=== PATIENT | female | born 1985 | race Caucasian/White ===

== ENCOUNTER → 2016-03-23 | Outpatient (CLI) | payer OTHER ==
[~2016-03-23] MED LIST: DOCU-94 PO; PRENTAB26 PO; SERT25TA PO
== END | disposition home or self-care (01) ==
LOC: C.LABSPEC 11:27
PROVIDERS: ATTEND Obstetrics & Gynecology
DX: O09.293 Supervision of pregnancy with other poor reproductive or obstetric history, third trimester (principal); Z3A.00 Weeks of gestation of pregnancy not specified

== ENCOUNTER 2016-04-16 00:02 | Inpatient (IN) | payer OTHER ==
[~2016-04-16] VITALS: Ht 162.6 cm; Wt 83.2 kg
[~2016-04-16 00:02] MED LIST changes: -DOCU-94 PO
[2016-04-16] MEDS ORDERED: DOCU-94 PO (00:17)
[2016-04-16 00:20] VITALS: Ht 162.6 cm; Wt 83.2 kg
[2016-04-16] MEDS ORDERED: LACTATED RINGER'S 1000ML 1,000 ML IV SCH (00:32)
[2016-04-16] MEDS ORDERED: LACTATED RINGER'S 1000ML 1,000 ML IV PRN (00:32)
[2016-04-16 00:53] LABS: HEMATOCRIT 35.1 % (37-47); MEAN CELL VOLUME 88.9 fL (80-100); MEAN CORPUSCULAR HEMOGLOBIN 30.1 pg (25-34); MEAN CORPUSCULAR HGB CONC 33.9 g/dl (32-36); MEAN PLATELET VOLUME 10.2 fL (7.4-10.4); PLATELET COUNT 300 K/uL (130-400); RED BLOOD COUNT 3.95 M/uL (4.2-5.4); WHITE BLOOD COUNT 12.17 K/uL (4.8-10.8)
[2016-04-16] MEDS ORDERED: OXYTOCIN 30 UNITS/500ML NSS IV ONE (01:29)
[2016-04-16] MEDS ORDERED: SUPERCREAM 0.870 % 15GM JAR EXT PRN (03:15)
[2016-04-16] MEDS ORDERED: LANOLIN OINT EXT PRN ×2 (03:15)
[2016-04-16] MEDS ORDERED: OXYTOCIN 30 UNITS/500ML NSS IV PRN (03:15)
[2016-04-16] MEDS ORDERED: BENZOCAINE 20% AER SPR 82.5 GM CAN EXT PRN (03:15)
[2016-04-16] MEDS ORDERED: ACETAMINOPHEN/CODEINE 300/30MG TAB PO PRN ×2 (03:15)
[2016-04-16] MEDS ORDERED: HYDROCORTISONE ACETATE 25 MG SUPP PR PRN (03:15)
[2016-04-16] MEDS: IBUPROFEN 600 MG TAB PO PRN ×2 (03:16→10:08)
--- NOTE | 2016-04-16 05:38 | DELIVERY SUMMARY ---
DATE OF OPERATION: 04/16/2016 PREDELIVERY DIAGNOSES: 1. A 30-year-old G4, P1-0-2-1, at 39 weeks, 3 days. 2. Spontaneous labor. POSTDELIVERY DIAGNOSES: Same. PROCEDURE: Spontaneous vaginal delivery with repair of second degree peroneal laceration. SURGEON: Dr. Prado. ESTIMATED BLOOD LOSS: 300 mL. FINDINGS: Viable female , Apgars 8 and 8 with a second degree peroneal laceration. DETAILS OF DELIVERY: The patient progressed to complete without analgesia and she spontaneously vaginally delivered a viable female from the cephalic presentation. The head delivered in the left occiput anterior position followed by the anterior shoulder and the posterior shoulder and the body. No nuchal cord was noted. The baby was placed on mother's abdomen and a spontaneous cry was heard. Delayed cord clamping was performed. The cord was then doubly clamped and cut. Cord blood was obtained. The perineum, vagina and cervix were inspected and a second degree peroneal laceration was noted. 1% lidocaine with epi was used to achieve local anesthetic. The placenta was then delivered spontaneously, intact with a 3-vessel cord. The second degree peroneal laceration was repaired in standard fashion with 3-0 Vicryl in a running stitch. Of note, there was a small vessel bleeding at the inferior perineal apex of the peroneal laceration near the rectum this was incorporated in the laceration repair and excellent hemostasis was achieved at the time of repair. The uterus and vagina were swept off all clots and debris. Excellent hemostasis was observed again. At the conclusion of the delivery, sponge, instrument and needle counts were correct x2. The mother and baby recovered in the room in stable and good condition. I attest to the content of the Intraoperative Record and any orders documented therein. Any exceptio ns are noted below.
[2016-04-16 06:00] VITALS: BP 108/64; PULSE 82; TEMP 36.6; O2SAT 97
[2016-04-16 07:52] VITALS: BP 106/68; PULSE 76; TEMP 36.9
[2016-04-16] MEDS ORDERED: DOCUSATE SODIUM 100 MG CAP PO SCH (08:00)
[2016-04-16] MEDS: DOCUSATE SODIUM 100 MG CAP PO SCH ×2 (08:21→19:43)
[2016-04-16] MEDS: FERROUS SULFATE 325 MG TAB PO SCH (08:21)
[2016-04-16] MEDS: PRENATAL VITAMIN TAB PO SCH (08:21)
[2016-04-16 12:00] VITALS: BP 106/68; PULSE 80; TEMP 36.7
[2016-04-16 16:00] VITALS: BP 107/66; PULSE 60; TEMP 36.8
[2016-04-16 19:35] VITALS: BP 106/71; PULSE 82; TEMP 37
[2016-04-17 00:25] VITALS: BP 102/59; PULSE 64; TEMP 36.8
[2016-04-17 06:17] LABS: HEMATOCRIT 36.1 % (37-47)
--- NOTE | 2016-04-17 06:44 | Progress Note ---
Subjective Apr 17, 2016. Subjective conversation w/ patient, physical exam Ambulation: ambulating normally Voiding: no voiding problems Passing Gas: Yes Diet Tolerance: Regular Diet Lochia: Small Feeding Type: Breast Feeding Objective Vital Signs Date Time Temp Pulse Resp B/P Pulse Ox O2 Delivery O2 Flow Rate FiO2 04/17/16 00:27 Room Air 04/17/16 00:25 36.8 64 18 102/59 Room Air 04/16/16 19:35 37.0 82 16 106/71 Room Air 04/16/16 16:00 36.8 60 20 107/66 Room Air 04/16/16 16:00 Room Air 04/16/16 12:00 36.7 80 18 106/68 Room Air 04/16/16 12:00 Room Air 04/16/16 07:52 36.9 76 20 106/68 Room Air 04/16/16 07:45 Room Air Physical Exam General Appearance: WELL-APPEARING, NO APPARENT DISTRESS Respiratory/Chest: lungs clear, no respiratory distress Cardiovascular: regular rate, rhythm, no murmur Abdomen: non tender, soft Fundus: Firm, Non-Tender, Relation to Umbilicus (at the umbilicus) Extremities: non-tender, no calf tenderness Laboratory Results Last 24 Hours Test 04/17/16 05:45 Hemoglobin 11.9 g/dL Hematocrit 36.1 % Assessment and Plan Post- (1) Day#: 1 Continue Routine Care: s/p Day 1 - vitals reviewed and wnl - Hgb 11.9 today - Blood: A+, GBS-. Rubella immune - Patient doing well clinically - Encourage ambulation, encourage breast feeding and monitor lochia - Patient counselled on discharge instructions - PATIENT TO BE DISCHARGED TODAY Resident Physician Supervision Note: I was present with Dr. Joseph during the history and exam. I discussed the case with the resident and agree with the findings and plan as documented in the note. Any exceptions or clarifications are listed here: PPD#1 doing well, would like to go home. Discharge instructions discussed, questions answered. Followup in 6 weeks in office. Documented By: Ngoc Prado
--- NOTE | 2016-04-17 06:45 | Discharge Instructions ---
Discharge Instructions Date of Service Apr 17, 2016. Admission Reason for Admission: LABOR Discharge Discharge Diagnosis / Problem: Spontaneous Vaginal Delivery Discharge Goals Goal(s): Routine recovery after delivery Medications Continue Dispensed Medications: supercream, dermaplast, tucks, lansinoh Activity Recommendations Activity Limitations: per Instructions/Follow-up section . Instructions / Follow-Up Instructions / Follow-Up ACTIVITY RECOMMENDATIONS: * Gradual return to full activity over the next 2-3 weeks. * No lifting - nothing heavier than baby over the next 2-3 weeks. * Do not engage in vigorous exercise, sexual activity or sports until cleared by your physician. * Do not drive or operate any motorized equipment until cleared by your physician. * You may shower/bathe daily. MEDICATIONS: For discomfort or pain, you may use Acetaminophen (Tylenol), Ibuprofen (Advil), or Naproxen (Aleve) following the package directions. For constipation you may use Colace following the package directions. BREAST CARE: If you are not breast feeding: * Wear a supportive bra 24 hours a day for one to two weeks. * Avoid stimulating your breasts and nipples as much as possible during the first few weeks after delivery. * When taking a shower, have the warm water hit your back, not breasts. * When your breasts feel full, apply ice packs. Usually three to four times a day helps ease the discomfort. * Take a mild pain medication (Tylenol / Motrin) when you are uncomfortable. If breast feeding: * Use breast milk to lubricate nipples. Lansinoh cream may be used for sore nipples. You do not need to remove cream prior to breast feeding. If using a different brand of cream, check the label for directions regarding removal of cream prior to nursing. * Wear a supportive bra. * If having problems with breasts or breast feeding, call a business transformation consultant or your health care provider. EPISIOTOMY CARE: After delivery, if you have an episiotomy (stitches), the following steps will ease discomfort and aid healing. * For the first 24 hours after delivery, place ice packs next to your episiotomy to help reduce swelling. * After the first 24 hour-period, sitz baths, either portable or in the tub, are suggested. A shower with a shower arm sprayed over the episiotomy may be comforting. * Kirsty care should be done after each voiding and bowel movement. Squirt warm water from a plastic bottle over the perineum (region of the body between the anus and urinary opening) and pat dry. * Use Dermoplast to ease discomfort. Shake container. [place] directly over the episiotomy. Place a Tucks on a clean sanitary pad next to your episiotomy. SPECIAL CARE INSTRUCTIONS: When you are discharged from the hospital, it is important for you to follow the instructions listed below: * During the first week at home, you should be able to care for yourself and your baby. In addition, the usual light household activities are encouraged. * Limit your activities to the way you feel. Do not try to clean the house or move furniture. Be sensible. * If you actively engage in sports and have done so up until the time of your delivery, you may resume these activities as soon as you feel able. This may take up to one month or even longer. Use good judgment. * Continue to take your vitamins for at least six weeks after the of your baby. * Your diet need not be limited unless you were on a special diet before your delivery. Breast-feeding mothers need around 2500 calories per day and at least 64-80 ounces of fluid per day (8 to 10 glasses). * You should eat foods from the four major food groups. Crash diets or fad diets are to be avoided. Eating lean meats, fresh fruits and vegetables, low-fat dairy products, high fiber foods and a regular exercise program, will help you get back to your pre- weight without putting your health at risk. * Constipation is sometimes a problem after delivery. Take a mild laxative as needed. If breast feeding, Milk of Magnesia is acceptable to use. You may use a suppository or Fleets enema if no episiotomy. * A daily shower or tub bath is suggested. Be sure to thoroughly and gently dry the perineum. * A bloody vaginal discharge will usually continue until around four weeks post . A small amount of bleeding may continue for as long as six weeks. Vaginal discharge changes from the bright red bleeding after delivery to pink then brownish and finally yellowish-pink before becoming white and disappearing. * Bleeding may increase with activity. Your first period may come in 4-8 weeks. If you are breast feeding, your period may be delayed even longer. * [place] (sex) can begin whenever both you and your partner feel comfortable and do not have any form of genital infection. It is recommended that you wait at least six weeks for internal and external healing to occur. If you have questions, please talk to your health care practitioner. A condom should be used to prevent infection and . * Foreplay, gentle intercourse and lubrication is very important the first several times to prevent pain. A water-based lubricant such as K-Y jelly or Astroglide may be used. * If you have RH negative blood and your baby is RH positive, you will receive RHOGAM by injection prior to discharge. The nurse will give you a card to keep with you that has the date and place that you received RHOGAM after delivery. * During your care, you had a Rubella screen done to check for the presence of rubella antibodies in your blood. If your test was negative, you will receive a Rubella vaccine prior to discharge. This vaccine may cause a fever, soreness at the injection site and flu-like symptoms. If these symptoms persist, notify your health care practitioner. is not advised for one month after a Rubella vaccine. * Verbalizes understanding of car seat law as reviewed with patient nursing. * Car Seat hand-out given and reviewed with patient by nursing. * Shaken baby information reviewed with patient by nursing. Call you doctor if: * Heavy bleeding (saturating several pads an hour) or passing clots the size of your fist. * A fever >101 degrees F (38.3 degrees C) on two occasions four hours apart and /or chills. * Unusual pain in the pelvic or vaginal areas. * "Baby Blues" lasting longer than two weeks. If you have any questions or concerns, call your health care practitioner at . FOLLOW UP VISIT: * Please call the office at to schedule a 6 week examination. It is important you keep this appointment. It is important for you to make arrangements for either yearly or twice yearly check-ups thereafter. Current Hospital Diet Patient's current hospital diet: Regular OB Diet Discharge Diet Recommended Diet: Regular Diet Pending Studies Studies pending at discharge: no Medical Emergencies . Who to Call and When: Medical Emergencies: If at any time you feel your situation is an emergency, please call 911 immediately. . Non-Emergent Contact Non-Emergency issues call your: Primary Care Provider, Psychometric Examiner . . "Provider Documentation" section prepared by Govind Joseph. VTE Core Measure Inpt VTE Proph given/why not?: Treatment not indicated
[2016-04-17] MEDS: DOCUSATE SODIUM 100 MG CAP PO SCH (07:52)
[2016-04-17] MEDS: FERROUS SULFATE 325 MG TAB PO SCH (07:52)
[2016-04-17] MEDS: IBUPROFEN 600 MG TAB PO PRN (07:52)
[2016-04-17] MEDS: PRENATAL VITAMIN TAB PO SCH (07:52)
[2016-04-17 08:10] VITALS: BP 105/64; PULSE 77; TEMP 36.4; O2SAT 99
[2016-04-17 12:16] VITALS: BP_DIAS 64; PULSE 77; TEMP 36.4
== END 2016-04-17 12:45 | disposition home or self-care (01) | DRG 775 ==
LOC: C.OPB 00:02 → C.LD 00:02 → C.OPB 00:33 → C.LD 00:33 → C.OBG 05:56 → EDSTATUS 04-20 00:01
PROVIDERS: ADMIT Obstetrics & Gynecology; ATTEND Obstetrics & Gynecology
PROC: 10E0XZZ Delivery of Products of Conception, External Approach (ICD-10-PCS; principal; 2016-04-16)
PROC: 0KQM0ZZ Repair Perineum Muscle, Open Approach (ICD-10-PCS; principal; 2016-04-16)
DX: O70.1 Second degree perineal laceration during delivery (principal); Z37.0 Single live birth; O76 Abnormality in fetal heart rate and rhythm complicating labor and delivery; Z3A.39 39 weeks gestation of pregnancy